=== PATIENT | female | born 1960 | race Native Hawaiian/Other Pacific Islander ===

== ENCOUNTER 2017-03-05 07:38 | Day surgery (SDC) | payer BC ==
[~2017-03-05] VITALS: Ht 30.5 cm; Wt 0.5 kg
[~2017-03-05 07:38] MED LIST: AMIT25TA22 PO; CLONAZEP ODT2 MG PO; LISI20TA11 PO; PANTPAK PO; VENLAFAXINE50 MG PO
[2017-03-05 08:46] LABS: POTASSIUM 3.5 mmol/L (3.6-5.2); SODIUM 139 mmol/L (136-145)
[2017-03-05 09:46] LABS: PLATELET COUNT 175 K/uL (152-353)
== END 2017-03-05 10:53 | disposition home or self-care (01) ==
LOC: OR 07:38
PROVIDERS: Internal Medicine
PROC: 0DB68ZZ Excision of Stomach, Via Natural or Artificial Opening Endoscopic (ICD-10-PCS; principal; 2017-03-05)
PROC: 0D758ZZ Dilation of Esophagus, Via Natural or Artificial Opening Endoscopic (ICD-10-PCS; 2017-03-05)
DX: R13.10 Dysphagia, unspecified (principal); K29.50 Unspecified chronic gastritis without bleeding; K44.9 Diaphragmatic hernia without obstruction or gangrene; K22.2 Esophageal obstruction
CPT/HCPCS: 80053; 83880; 85027; 93005; J2001; J2250; J2704; J3010

== ENCOUNTER 2017-05-28 08:08 | Outpatient (CLI) | payer BC ==
[~2017-05-28] VITALS: Ht 160 cm; Wt 61.2 kg
== END 2017-05-28 21:58 | disposition home or self-care (01) ==
LOC: NM 08:08
DX: R07.89 Other chest pain (principal); R06.02 Shortness of breath
CPT/HCPCS: 93306; A9500; J2785

== ENCOUNTER 2017-11-19 17:21 | Observation (INO) | payer BC, OTHER ==
[~2017-11-19] VITALS: Ht 160 cm; Wt 63.5 kg
[2017-11-19 17:22] VITALS: BP 140/80; TEMP 98.2
[2017-11-19 21:07] LABS: PLATELET COUNT 187 K/uL (152-353)
[2017-11-19 21:14] LABS: POTASSIUM 2.8 mmol/L (3.6-5.2)
[2017-11-19 23:40] VITALS: BP 140/77; TEMP 97.5; Ht 160 cm; Wt 63.5 kg
[2017-11-20 02:00] VITALS: BP 134/75; TEMP 97.6
[2017-11-20 04:00] VITALS: BP 147/68; TEMP 97.8
[2017-11-20 08:00] VITALS: BP 142/70; TEMP 98.1
[2017-11-20 12:00] VITALS: BP 149/89; TEMP 98
--- NOTE | 2017-11-20 14:44 | NUR ---
IV D/C'd. DISCHARGE INSTRUCTIONS SIGNED AND GIVEN. Pt. EXIT OUT OF FRONT ENTRANCE VIA W/C.
== END 2017-11-20 15:00 | disposition home or self-care (01) ==
LOC: ED 17:21 → MED/SURG 20:50
PROVIDERS: ADMIT Emergency Medicine
DX: R10.84 Generalized abdominal pain (principal); V43.62XA Car passenger injured in collision with other type car in traffic accident, initial encounter; Y93.89 Activity, other specified; Y92.89 Other specified places as the place of occurrence of the external cause; Y99.8 Other external cause status; S30.1XXA Contusion of abdominal wall, initial encounter; S06.0X0A Concussion without loss of consciousness, initial encounter
CPT/HCPCS: 36415; 80053; 82150; 83690; 85027; 93005; 96365; 96366; 99220; 99283; G0378; Q9963

== ENCOUNTER → 2017-11-19 | Outpatient (CLI) | payer OTHER | END | disposition short-term general hospital (02) | LOC: AMB 16:51 | DX: R41.82 Altered mental status, unspecified (principal); M25.552 Pain in left hip; S80.212A Abrasion, left knee, initial encounter; V49.88XA Car occupant (driver) (passenger) injured in other specified transport accidents, initial encounter; Y92.488 Other paved roadways as the place of occurrence of the external cause | CPT/HCPCS: A0425; A0427 ==

== ENCOUNTER 2017-11-20 20:14 | Emergency (ER) | payer BC, OTHER ==
[~2017-11-20] VITALS: Ht 160 cm; Wt 63.0 kg
[2017-11-20 20:54] LABS: PLATELET COUNT 183 K/uL (152-353)
[2017-11-20 21:06] LABS: POTASSIUM 3.5 mmol/L (3.6-5.2)
[2017-11-20 22:17] VITALS: BP 119/64; TEMP 98.1
== END 2017-11-20 22:17 | disposition home or self-care (01) ==
LOC: ED 20:14
DX: R10.84 Generalized abdominal pain (principal); S36.113A Laceration of liver, unspecified degree, initial encounter
CPT/HCPCS: 36415; 80053; 85027; 99283

== ENCOUNTER 2018-04-13 08:57 | Outpatient (CLI) | payer BC, OTHER | END 2018-04-13 21:02 | disposition home or self-care (01) | LOC: MAMMO 08:57 | DX: Z12.31 Encounter for screening mammogram for malignant neoplasm of breast (principal) ==

== ENCOUNTER 2018-09-09 07:50 | Day surgery (SDC) | payer BC, OTHER | END 2018-09-09 11:10 | disposition home or self-care (01) | LOC: OR 07:50 | PROC: 0DJD8ZZ Inspection of Lower Intestinal Tract, Via Natural or Artificial Opening Endoscopic (ICD-10-PCS; principal; 2018-09-09) | DX: K92.1 Melena (principal); K59.04 Chronic idiopathic constipation; K57.30 Diverticulosis of large intestine without perforation or abscess without bleeding; K64.4 Residual hemorrhoidal skin tags; K62.5 Hemorrhage of anus and rectum; Z12.11 Encounter for screening for malignant neoplasm of colon ==

== ENCOUNTER 2018-12-22 14:38 | Outpatient (CLI) | payer BC, OTHER ==
[2018-12-22 15:05] LABS: PLATELET COUNT 194 K/uL (152-353)
[2018-12-22 15:57] LABS: POTASSIUM 3.5 mmol/L (3.6-5.2)
== END 2018-12-22 23:50 | disposition home or self-care (01) ==
LOC: RAD 14:38
PROVIDERS: Nurse Practitioner Family
DX: M17.0 Bilateral primary osteoarthritis of knee (principal); H16.223 Keratoconjunctivitis sicca, not specified as Sjogren's, bilateral; M79.7 Fibromyalgia; M85.89 Other specified disorders of bone density and structure, multiple sites; Z79.899 Other long term (current) drug therapy
CPT/HCPCS: 36415; 80053; 85027; 85651; 86140

== ENCOUNTER 2019-04-18 13:15 | Outpatient (CLI) | payer BC, OTHER | END 2019-04-18 20:46 | disposition home or self-care (01) | LOC: MAMMO 13:15 | DX: Z12.31 Encounter for screening mammogram for malignant neoplasm of breast (principal) ==

== ENCOUNTER 2019-07-06 11:45 | Outpatient (CLI) | payer BC, OTHER | END 2019-07-06 21:17 | disposition home or self-care (01) | LOC: RESP 11:45 | DX: M19.041 Primary osteoarthritis, right hand (principal); M19.042 Primary osteoarthritis, left hand; M35.01 Sjogren syndrome with keratoconjunctivitis; Z79.899 Other long term (current) drug therapy ==

== ENCOUNTER 2019-10-11 12:24 | Outpatient (CLI) | payer OTHER | END 2019-10-11 21:49 | disposition home or self-care (01) | LOC: RAD 12:24 | DX: M17.0 Bilateral primary osteoarthritis of knee (principal) ==

== ENCOUNTER 2019-11-11 12:55 | Outpatient (CLI) | payer OTHER | END 2019-11-11 23:02 | disposition home or self-care (01) | LOC: RAD 12:55 | DX: M54.5 Low back pain (principal) ==

== ENCOUNTER 2019-12-02 15:08 | Outpatient (CLI) | payer OTHER ==
[2019-12-02 15:51] LABS: PLATELET COUNT 191 K/uL (152-353)
[2019-12-02 15:54] LABS: POTASSIUM 3.3 mmol/L (3.6-5.2)
== END 2019-12-02 23:07 | disposition home or self-care (01) ==
LOC: CT 15:08
PROVIDERS: ATTEND Internal Medicine Gastroenterology
DX: R10.84 Generalized abdominal pain (principal)
CPT/HCPCS: 36415; 80053; 83516; 85027; 86140; Q9963

== ENCOUNTER 2020-01-05 14:36 | Outpatient (CLI) | payer OTHER | END 2020-01-05 21:13 | disposition home or self-care (01) | LOC: MRI 14:36 | DX: R93.2 Abnormal findings on diagnostic imaging of liver and biliary tract (principal) | CPT/HCPCS: A9576 ==

== ENCOUNTER 2020-03-08 10:55 | Outpatient (CLI) | payer OTHER | END 2020-03-08 19:03 | disposition home or self-care (01) | LOC: RAD 10:55 | DX: M79.672 Pain in left foot (principal) ==

== ENCOUNTER 2020-05-30 13:21 | Outpatient (CLI) | payer OTHER | END 2020-05-30 19:42 | disposition home or self-care (01) | LOC: MAMMO 13:21 | PROVIDERS: ATTEND Obstetrics & Gynecology | DX: Z12.31 Encounter for screening mammogram for malignant neoplasm of breast (principal) ==

== ENCOUNTER 2020-12-10 09:17 | Outpatient (CLI) | payer OTHER | END 2020-12-10 20:56 | disposition home or self-care (01) | LOC: RAD 09:17 | PROVIDERS: ATTEND Nurse Practitioner Family | DX: R10.84 Generalized abdominal pain (principal) ==